=== PATIENT | male | born 1935 | race Caucasian/White ===

== ENCOUNTER 2020-10-31 07:10 | Day surgery (SDC) | payer MEDICARE ==
[2020-10-29 14:22] VITALS: BMI 25.3
[2020-10-31 08:02] LABS: Hemoglobin 12.8 g/dL (14.0-18.0)
[2020-10-31 08:21] LABS: Anion Gap 14 mmol/L (10-20); BUN (Urea Nitrogen) 24 mg/dL (8.4-25.7); Calc. Creatinine Clearance 78 mL/min (70-130); Calcium 9.4 mg/dL (7.8-10.44); Carbon Dioxide 25 mmol/L (23-31); Chloride 104 mmol/L (98-107); Glucose 98 mg/dL (83-110); Potassium 4.3 mmol/L (3.5-5.1); Sodium 139 mmol/L (136-145)
[2020-10-31] MEDS ORDERED: Bacitracin Zinc Ointment 30 gm TUBE ONE (08:39)
[2020-10-31] MEDS ORDERED: Lidocaine 2% w/Epinephrine 1:200K 20 ML VIAL ONE (08:42)
[2020-10-31] MEDS ORDERED: Fentanyl 100 MCG/2 ML VIAL ONE (08:44)
[2020-10-31] MEDS ORDERED: Lidocaine 1% w/Epinephrine 1:100K 20 ML VIAL ONE (08:52)
[2020-10-31] MEDS ORDERED: Mineral Oil Sterile 10ML 10 ML UDCUP ONE (10:45)
[2020-10-31] MEDS ORDERED: Ondansetron PF 4 MG/2 ML Vial ONE (12:09)
[2020-10-31] MEDS ORDERED: Dexamethasone 20 MG/5 ML VIAL ONE (12:09)
[2020-10-31] MEDS ORDERED: ePHEDrine 50 MG/ML VIAL ONE (12:09)
[2020-10-31] MEDS ORDERED: Lidocaine 1% PF 5 ML VIAL ONE (12:09)
[2020-10-31] MEDS ORDERED: PHENYLEPHRINE-NS 100 MCG/ML 10 ML SYRINGE ONE (12:09)
[2020-10-31] MEDS ORDERED: PROPOFOL 200 MG/20 ML VIAL ONE (12:09)
== END 2020-10-31 12:38 | disposition home or self-care (01) ==
LOC: SDC 07:10
PROVIDERS: ATTEND Specialist
PROC: 0HR3X74 Replacement of Left Ear Skin with Autologous Tissue Substitute, Partial Thickness, External Approach (ICD-10-PCS; principal; 2020-10-31)
DX: C44.229 Squamous cell carcinoma of skin of left ear and external auricular canal (principal); M06.9 Rheumatoid arthritis, unspecified; Z79.899 Other long term (current) drug therapy; Z96.653 Presence of artificial knee joint, bilateral
CPT/HCPCS: 36415; 80048; 85014; 85018; 88305; 88331; 88332; 93005; 93010; J1100; J2405; J2704; J3010; J3490